=== PATIENT | male | born 1995 | race African-American/Black ===

== ENCOUNTER 2018-11-12 04:22 | Emergency (ER) | payer OTHER ==
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
[2018-11-12] MEDS ORDERED: ULTRAM PO ONE (05:16)
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
[2018-11-12 06:46] VITALS: BP 122/75
== END 2018-11-12 06:30 | disposition home or self-care (01) ==
LOC: ED 04:22
DX: S16.1XXA Strain of muscle, fascia and tendon at neck level, initial encounter (principal); M54.5 Low back pain; V89.2XXA Person injured in unspecified motor-vehicle accident, traffic, initial encounter; Y93.89 Activity, other specified; Y92.410 Unspecified street and highway as the place of occurrence of the external cause; Y99.8 Other external cause status
CPT/HCPCS: 70460; 72125